=== PATIENT | female | born 1950 | race Caucasian/White ===

== ENCOUNTER 2021-01-01 10:39 | Emergency (ER) | payer MEDICARE, OTHER ==
[~2021-01-01] VITALS: Ht 160 cm; Wt 67.8 kg
--- NOTE | 2021-01-01 10:57 | NUR ---
leasing associate: pt drinking fluids in triage, advised to be NPO
[2021-01-01] MEDS ORDERED: MORPHINE SULFATE 4 MG/ML, 1ML ONE ×2 (12:10→16:11)
[2021-01-01 12:12] LABS: BASOPHILS % (AUTO) 1 % (0-1); EOSINOPHILS % (AUTO) 1 % (1-7); LYMPHOCYTES % (AUTO) 40 % (22-44); MEAN CORPUSCULAR HEMOGLOBIN 31.1 pg (27.0-34.8); MEAN PLATELET VOLUME 7.5 fL (7.4-10.4); MONOCYTES % (AUTO) 5 % (2-9); NEUTROPHILS % (AUTO) 53 % (42-75); PLATELET COUNT 350 x10^3/uL (130-400); RED BLOOD COUNT 4.61 x10^6/uL (3.82-5.3)
[2021-01-01] MEDS: MORPHINE SULFATE 4 MG/ML, 1ML IVPush PRN ×2 (12:17→16:16)
--- NOTE | 2021-01-01 12:19 | NUR ---
PT MEDICATED PER EMAR, NADN/VSS. CALL LIGHT WITHIN REACH. BED RAILS UP X2, BED IN LOWEST POSITION.
[2021-01-01 12:24] LABS: ALBUMIN 4.5 g/dL (3.4-5.0); ANION GAP 3 mmol/L (5-15); CALCIUM 9.5 mg/dL (8.5-10.1); CHLORIDE 102 mmol/L (98-107); CREATININE 0.95 mg/dL (0.55-1.02)
[2021-01-01 12:30] LABS: MICROSCOPIC NOT IND
--- NOTE | 2021-01-01 14:30 | NUR ---
PT BACK FROM MRI, CONNECTED TO MONITORS. CALL LIGHT WITHIN REACH. BED IN LOWEST POSITION, BED RAILS UP X2
[2021-01-01 15:10] VITALS: BP 185/77
[2021-01-01] MEDS ORDERED: ONDANSETRON ODT 4 MG ONE (17:27)
--- NOTE | 2021-01-01 18:35 | NUR ---
Patient/Caregiver given discharge instructions and RX, they have confirmed that they understand the instructions.
== END 2021-01-01 18:37 | disposition home or self-care (01) ==
LOC: ED 13:23
DX: M54.42 Lumbago with sciatica, left side (principal); R51.9 Headache, unspecified
CPT/HCPCS: 36415; 72148; 80048; 81003; 82040; 85025; 96374; 96376; 99284; J2270

== ENCOUNTER 2021-01-02 10:20 | Emergency (ER) | payer MEDICARE, MEDICAID ==
[~2021-01-02] VITALS: Ht 162.6 cm; Wt 63.6 kg
--- NOTE | 2021-01-02 10:47 | NUR ---
PT REPORTS SHE LIVES IN [facility], HAS BEEN HERE VISITING HER SON & DAUGHTER IN LAW WHEN "ALL HELL BROKE LOOSE". SHE STARTED HAVING SEVERE LOW BACK/L LOWER SIDE PAIN. MRI WAS DONE. PT WAS HERE IN THE HOSPITAL AND MEDICATED WITH MORPHINE; STATES SHE'S HAD SEVERE N/V SINCE THEN. HASN'T BEEN ABLE TO KEEP ANYTHING DOWN OR TAKE THE STEROIDS THAT WERE PRESCRIBED. ERP AT BS NOW.
[2021-01-02] MEDS ORDERED: HYDROmorphone 1 MG/ML, 1ML INJ IV ONE (11:00)
[2021-01-02] MEDS ORDERED: ONDANSETRON 2MG/ML, 2ML IVPush ONE (11:00)
[2021-01-02] MEDS ORDERED: DIPHENHYDRAMINE 50 MG/ML, 1ML IVPush ONE (11:00)
[2021-01-02] MEDS ORDERED: HYDROmorphone 2 MG/ML, 1ML ONE (11:10)
[2021-01-02] MEDS ORDERED: DIPHENHYDRAMINE 50 MG/ML, 1ML ONE (11:10)
[2021-01-02] MEDS ORDERED: ONDANSETRON 2MG/ML, 2ML ONE (11:11)
[2021-01-02 11:21] LABS: BASOPHILS % (AUTO) 1 % (0-1); EOSINOPHILS % (AUTO) 0 % (1-7); LYMPHOCYTES % (AUTO) 18 % (22-44); MEAN CORPUSCULAR HEMOGLOBIN 30.6 pg (27.0-34.8); MEAN CORPUSCULAR HGB CONC 34.3 g/dL (32.4-35.8); MEAN PLATELET VOLUME 7.6 fL (7.4-10.4); MONOCYTES % (AUTO) 3 % (2-9); NEUTROPHILS % (AUTO) 79 % (42-75); PLATELET COUNT 376 x10^3/uL (130-400); RED CELL DISTRIBUTION WIDTH 13.2 % (9.6-15.2)
--- NOTE | 2021-01-02 11:30 | NUR ---
PT MEDICATED FOR BACK/L SIDE PAIN AND NAUSEA. ABLE TO REPOSITION HERSELF ONTO HER R SIDE, STATES SHE'S FEELING A LITTLE BETTER. VSS. UNDERSTANDS POC.
[2021-01-02 11:31] LABS: ALANINE AMINOTRANSFERASE 21 U/L (12-78); ALBUMIN 4.4 g/dL (3.4-5.0); CALCIUM 9.4 mg/dL (8.5-10.1); CREATININE 0.82 mg/dL (0.55-1.02)
[2021-01-02 11:33] LABS: ALKALINE PHOSPHATASE 76 U/L (45-117); BILIRUBIN,TOTAL 0.6 mg/dL (0.2-1.0); TOTAL PROTEIN 8.1 g/dL (6.4-8.2)
[2021-01-02 11:44] LABS: ANION GAP 11 mmol/L (5-15); CHLORIDE 100 mmol/L (98-107)
[2021-01-02 12:00] VITALS: BP 143/68
--- NOTE | 2021-01-02 12:19 | NUR ---
ERP WAS IN FOR RECHECK. PT STATED SHE FELT MUCH BETTER AFTER MEDS, WILLING TO GO HOME.
[2021-01-02] MEDS ORDERED: DEXAMETHASONE 4 MG/ML, 5ML ONE (12:24)
[2021-01-02] MEDS ORDERED: DEXAMETHASONE 4 MG/ML, 1ML IVPush ONE (13:00)
== END 2021-01-02 13:16 | disposition home or self-care (01) ==
LOC: ED 10:33
DX: R11.2 Nausea with vomiting, unspecified (principal); M54.9 Dorsalgia, unspecified; R10.31 Right lower quadrant pain; Z88.2 Allergy status to sulfonamides; Z88.1 Allergy status to other antibiotic agents
CPT/HCPCS: 36415; 80053; 83690; 85025; 96374; 96375; 99284; J1100; J1170; J1200; J2405